=== PATIENT | female | born 1950 | race Caucasian/White ===

== ENCOUNTER 2021-12-28 11:56 | Outpatient (CLI) | payer OTHER | END 2021-12-28 11:59 | disposition home or self-care (01) | LOC: SONOGRAMA 11:56 | PROVIDERS: ATTEND Pathology Anatomic Pathology | DX: E07.9 Disorder of thyroid, unspecified (principal); D34 Benign neoplasm of thyroid gland; E06.3 Autoimmune thyroiditis; E04.1 Nontoxic single thyroid nodule ==